=== PATIENT | male | born 1955 | race Caucasian/White ===

== ENCOUNTER 2017-03-20 08:29 | Inpatient (IN) | payer BC ==
[~2017-03-20] VITALS: Ht 177.8 cm; Wt 86.4 kg
[2017-03-20 09:46] LABS: BASOPHILS 0.4 % (0-2); EOSINOPHILS 1.6 % (0-7); HEMATOCRIT 47.1 % (42.0-54.0); HEMOGLOBIN 16.1 g/dL (13.5-17.5); IMMATURE GRANULOCYTES 0.2 % (0-5); LYMPHOCYTES 22.7 % (15-50); MCH 35.8 pg (26.0-34.0); MCHC 34.2 g/dL (31.0-37.0); MCV 104.7 fL (80.0-100.0); MEAN PLATELET VOLUME 11.2 fL (7.4-10.4); MONOCYTES 7.5 % (2-11); NEUTROPHILS 67.6 % (40-80); PLATELET COUNT 271 10x3/uL (130-400); RDW 13.7 % (11.5-14.5); WBC 10.6 10x3/uL (4.8-10.8)
[2017-03-20 10:02] LABS: ALBUMIN 3.9 g/dL (3.4-5.0); ALKALINE PHOSPHATASE 142 U/L (46-116); ALT (SGPT) 31 U/L (10-68); BILIRUBIN - TOTAL 0.26 mg/dL (0.2-1.3); CALC OSMOLALITY 277 mosm/kg (275-300); CALCIUM 9.3 mg/dL (8.5-10.1); CHLORIDE - SERUM 102 mmol/L (98-107); CREATININE - SERUM 0.9 mg/dL (0.6-1.3); GLUCOSE 108 mg/dL (74-106); POTASSIUM - SERUM 4.1 mmol/L (3.5-5.1); PROTEIN - SERUM 7.6 g/dL (6.4-8.2); SODIUM 138 mmol/L (136-145); UREA NITROGEN 14 mg/dL (7-18); eGFR NON AFRICAN AMERICAN > 90 mL/min (90-120)
--- NOTE | 2017-03-20 11:47 | NUR ---
PATIENT RECEIVED TO ROOM 2238. HE REQUESTS COFFEE. INFORMED THAT THERE IS A SURGICAL CONSULT AND HE NEEDS TO REMAIN NPO UNTIL SEEN AND A PLAN OF CARE IS DETERMINED. HE VOICES UNDERSTANDING. HE STATE STHAT HE HASN'T EATEN OR HAD HIS MORNING COFFEE. NOTHING TO EAT SINCE LAST NIGHT.
[2017-03-20 12:20] VITALS: BP 138/91; Ht 177.8 cm; Wt 86.4 kg
[2017-03-20] MEDS ORDERED: ZYLOPRIM300 MG PO (12:59)
[2017-03-20] MEDS ORDERED: METHOTREXATE2.5 MG PO (12:59)
[2017-03-20] MEDS ORDERED: LEVOTHYROXINE50 MCG PO (13:00)
[2017-03-20] MEDS ORDERED: FOLIC ACID1 MG PO (13:00)
[2017-03-20] MEDS ORDERED: LIPITOR40 MG PO (13:00)
[2017-03-20] MEDS ORDERED: METOPROLOL TART50 MG PO (13:01)
[2017-03-20] MEDS ORDERED: PROTONIX40 MG PO (13:01)
[2017-03-20] MEDS ORDERED: TRIBENZOR 40-11 EAC1 PO (13:02)
[2017-03-20] MEDS ORDERED: ASPIRIN325 MG PO (13:02)
[2017-03-20] MEDS ORDERED: HYDROCODONE-APA1 TAB PO (13:03)
[2017-03-20] MEDS ORDERED: SOMA350 MG PO (13:03)
[2017-03-20 15:37] VITALS: BP 157/82
--- NOTE | 2017-03-20 19:00 | NUR ---
PATIENT AMBULATING IN [place] AT THIS TIME.
[2017-03-20 19:53] LABS: ERYTHROCYTE SEDIMENTATION RATE 1 mm/hr (0-20)
[2017-03-20 20:00] VITALS: BP 139/81
--- NOTE | 2017-03-20 21:15 | NUR ---
PATIENT BACK IN ROOM AND IN BED. AAOX4. RR EVEN AND UNLABORED. 0 S/S OF DISTRESS. STATES PAIN IS A 7/10. IV TO RIGHT HAND PATENT WITH NO REDNESS OR SWELLING. DRESSING TO LEFT HAND CDI. NIGHTTIME MEDS GIVEN. MORPHINE GIVEN FOR PAIN. PLACED TELEMETRY ON PATIENT PER ORDER.
[2017-03-21 04:00] VITALS: BP 154/75
--- NOTE | 2017-03-21 05:05 | NUR ---
MORNING MEDS GIVEN. MORPHINE GIVEN FOR PAIN. NO OTHER NEEDS AT THIS TIME.
[2017-03-21 05:06] LABS: BASOPHILS 0.7 % (0-2); EOSINOPHILS 4.3 % (0-7); HEMATOCRIT 40.5 % (42.0-54.0); HEMOGLOBIN 13.6 g/dL (13.5-17.5); IMMATURE GRANULOCYTES 0.2 % (0-5); LYMPHOCYTES 36.9 % (15-50); MCH 35.3 pg (26.0-34.0); MCHC 33.6 g/dL (31.0-37.0); MCV 105.2 fL (80.0-100.0); MEAN PLATELET VOLUME 11.7 fL (7.4-10.4); MONOCYTES 9.9 % (2-11); PLATELET COUNT 258 10x3/uL (130-400); RBC 3.85 10x6/uL (4.20-6.10); WBC 8.2 10x3/uL (4.8-10.8)
[2017-03-21 05:30] LABS: CALC OSMOLALITY 281 mosm/kg (275-300); CALCIUM 8.7 mg/dL (8.5-10.1); CARBON DIOXIDE 29.3 mmol/L (21.0-32.0); CHLORIDE - SERUM 107 mmol/L (98-107); CREATININE - SERUM 0.7 mg/dL (0.6-1.3); GLUCOSE 79 mg/dL (74-106); SODIUM 142 mmol/L (136-145); UREA NITROGEN 12 mg/dL (7-18); eGFR NON AFRICAN AMERICAN > 90 mL/min (90-120)
--- NOTE | 2017-03-21 07:35 | NUR ---
PLACED IN PERCAUTIONARY CONTACT ISOLATION, DENIES NEEDS, UP AD SAWYER, ASSESSMENT COMPLETE, BED LOWEST POSITION, CALL LIGHT IN REACH, WILL CONTINUE TO MONITOR
--- NOTE | 2017-03-21 08:05 | NUR ---
PATIENT SITTING UP IN CHAIR TALKING ON PHONE. NO SIGNS OF DISTRESS NOTED. SIDE RAILS UP X2. BED IN LOW POSITION. CALL LIGHT IN REACH.
[2017-03-21 08:35] VITALS: BP 140/83
[2017-03-21 13:46] VITALS: BP 131/84
[2017-03-21 16:59] VITALS: BP 137/84
--- NOTE | 2017-03-21 19:00 | NUR ---
PATIENT SITTING UP IN CHAIR. AAOX4. RR EVEN AND UNLABORED. 0 S/S OF DISTRESS. STATES PAIN IS A 3/10. IV TO RIGHT HAND S/L WITH NO REDNESS OR SWELLING. DRESSING TO LEFT HAND. CALL LIGHT WITHIN REACH.
[2017-03-21 20:15] VITALS: BP 136/78
--- NOTE | 2017-03-21 21:30 | NUR ---
PATIENT BACK IN BED. NIGHTTIME MEDS GIVEN. NORCO GIVEN FOR PAIN. CHANGED DRESSING TO LEFT HAND.
[2017-03-21 23:38] VITALS: BP 125/77
[2017-03-22 05:16] LABS: BASOPHILS 0.8 % (0-2); EOSINOPHILS 4.6 % (0-7); HEMATOCRIT 38.4 % (42.0-54.0); HEMOGLOBIN 13.5 g/dL (13.5-17.5); IMMATURE GRANULOCYTES 0.3 % (0-5); LYMPHOCYTES 34.4 % (15-50); MCH 36.7 pg (26.0-34.0); MCHC 35.2 g/dL (31.0-37.0); MCV 104.3 fL (80.0-100.0); MEAN PLATELET VOLUME 11.6 fL (7.4-10.4); MONOCYTES 12.2 % (2-11); NEUTROPHILS 47.7 % (40-80); PLATELET COUNT 236 10x3/uL (130-400); RBC 3.68 10x6/uL (4.20-6.10); RDW 13.6 % (11.5-14.5); WBC 8.8 10x3/uL (4.8-10.8)
[2017-03-22 05:24] LABS: CALC OSMOLALITY 288 mosm/kg (275-300); CALCIUM 8.8 mg/dL (8.5-10.1); CARBON DIOXIDE 31.7 mmol/L (21.0-32.0); CHLORIDE - SERUM 107 mmol/L (98-107); CREATININE - SERUM 0.8 mg/dL (0.6-1.3); POTASSIUM - SERUM 3.7 mmol/L (3.5-5.1); SODIUM 144 mmol/L (136-145); UREA NITROGEN 12 mg/dL (7-18); eGFR NON AFRICAN AMERICAN > 90 mL/min (90-120)
[2017-03-22 05:29] LABS: GLUCOSE 131 mg/dL (74-106)
[2017-03-22 06:30] VITALS: BP 127/76
--- NOTE | 2017-03-22 07:30 | NUR ---
SITTING UP IN CHAIR, HOPEFUL FOR DISCHARGE, DENIES NEEDS, WILL CONTINUE TO MONITOR
[2017-03-22] MEDS ORDERED: CLEOCIN HCL300 MG PO (07:51)
[2017-03-22 08:01] VITALS: BP 115/71
--- NOTE | 2017-03-22 08:45 | NUR ---
Patient Name: AMARILIS MONTEJO Admission Status: ER Accout number: [id number] Admission Date: 03-20-2017 : 1955 Admission Diagnosis: Attending: LAUREN Current LOS: 2 Anticipated DC Date: 03-22-2017 Planned Disposition: Home Primary Insurance: [employer] Discharge Planning Comments: CM MET WITH PT REGUARDING HIS NEEDS FOR DISCHARGE TODAY. PT DENIES ANY NEEDS STATES HE LIVE WITH HIS PALMIRA ([phone]) WHO IS A RN AND HIS 2 CHILDREN WITH HIS MOTHER WHO LIVES NEXT DOOR. PT STATES HE HAS 4 STAIR WITH RAILS TO ENTER HIS HOME. HE IS INDEPENDENT WITH HIS DAILY NEEDS. HE HAS NO DME AT HOME. PCP IS DR BIRD AND USES THE [facility] [address] [facility]. PT STATES HIS ENVORONMENT IS SAFE, WILL DRIVE HIMSELF HOME. HH OFFERED AND PT REFUSED. CM WILL CONTINUE TO FOLLOW WITH DICHARGE NEEDS AND PLANS PCP-[facility] [address] [phone] PALMIRA MONTEJO ([phone]) BRITTANIE MCGILL RN * Is the patient Alert and Oriented? Yes 0 * How many steps to enter\exit or inside your home? 4 W/RAILS 0 * PCP PELON 0 * Pharmacy [facility] [address] [facility] * Preadmission Environment Home with Family 0 * ADLs Independent 0 * Equipment None 0 * List name and contact numbers for known caregivers / representatives who currently or will assist patient after discharge: PALMIRA MONTEJO ( ) [phone] 0 * Community resources currently utilized None 0 * Additional services required to return to the preadmission environment? No 0 * Can the patient safely return to the preadmission environment? Yes 0 * Has this patient been hospitalized within the prior 30 days at any hospital? No
--- NOTE | 2017-03-22 10:03 | NUR ---
AWAKE AND ALERT. ORIENTED X3. NO C/O THIS AM. GETTING READY FOR DISCHARGE AT THIS TIME. CELLULITIS TO LEFT HAND IMPROVED. DISCUSSED USE OF AB AT HOME. ALL QUESTIONS ANSWERED.
--- NOTE | 2017-03-22 10:15 | NUR ---
DISCHARGE PAPERS AND INSTRUCTIONS GIVEN, QUESTIONS ANSWERED, IV REMOVED TIP INTACT, DISCHARGED WITH BELONGINGS
--- NOTE | 2017-03-23 08:13 | DS ---
PATIENT:AMARILIS MONTEJO :55 MEDICAL RECORD: [id number] DISCHARGE SUMMARY ADMISSION DATE: 03/20/17 DISCHARGE DATE: 03/22/17 DATE OF ADMISSION: 03/20/2017. DATE OF DISCHARGE: 03/22/2017. ADMISSION DIAGNOSIS: Cellulitis, left upper extremity. DISCHARGE DIAGNOSIS: Cellulitis, left upper extremity. CONSULTS: Dr. Baptiste, orthopedist's. HOSPITAL COURSE: The patient was admitted with redness, swelling left hand spread straight to his left elbow. Small wound palmar aspect of the left hand, wound cultures obtained. Blood cultures obtained and started on IV vancomycin, restrictive cleared, and cleared by orthopedic service for discharge, no further intervention required. He is switched to oral antibiotics and wound cultures negative to date. We will follow up with Dr. Richards in 24 hours discussed this with the patient and he agrees. The patient is anxious to go home. Discharged home in significantly improved condition. Again, redness, swelling resolved. PHYSICAL EXAMINATION: VITAL SIGNS ON DISCHARGE: Temperature 99, blood pressure 127/76, heart rate 62, respirations 16, O2 sats 96% on room air. LABORATORY DATA: CBC: White count 8.8, hemoglobin 13.5, platelets 236. The patient will resume his home medications, started on oral clindamycin 300 mg q.i.d. for 10 days and again we will follow up with Dr. Richards in the a.m. Return to the ER with worsening symptoms. TRANSINT:[id number] Voice Confirmation ID: [id number] DOCUMENT ID: [id number] KEVIN LUBIN DO at 0813 CC: [id number] DICTATION DATE: 03/22/17 0800 AIRLINE MANAGERIAL SUPERVISOR: 03/23/17 0113 DIS IN 03/22/17 [id number] [place] [address]
== END 2017-03-22 10:31 | disposition home or self-care (01) | DRG 603 ==
LOC: D.ER 08:29 → D.MS 11:30
PROVIDERS: Emergency Medicine; Orthopaedic Surgery; ADMIT Family Medicine
DX: L03.116 Cellulitis of left lower limb (principal); I10 Essential (primary) hypertension; I25.10 Atherosclerotic heart disease of native coronary artery without angina pectoris; I73.9 Peripheral vascular disease, unspecified; Z95.5 Presence of coronary angioplasty implant and graft; F17.200 Nicotine dependence, unspecified, uncomplicated